=== PATIENT | female | born 1985 | race African-American/Black ===

== ENCOUNTER 2022-10-03 12:09 | Inpatient (IN) | payer SELFPAY ==
[~2022-10-03] VITALS: Ht 162.6 cm; Wt 64.0 kg
[2022-10-03] MEDS ORDERED: HALOPERIDOL LACTATE 5 MG/ML VIAL ONE (12:41)
[2022-10-03] MEDS ORDERED: LORazepam 2 MG/ML VIAL ONE (12:41)
[2022-10-03] MEDS ORDERED: DiphenhydrAMINE HCL 50 MG/ML VIAL ONE (12:41)
[2022-10-03] MEDS ORDERED: DiphenhydrAMINE HCL 50 MG/ML VIAL IM ONE (12:45)
[2022-10-03] MEDS ORDERED: LORazepam 2 MG/ML VIAL IM ONE (12:45)
[2022-10-03] MEDS ORDERED: HALOPERIDOL LACTATE 5 MG/ML VIAL IM ONE (12:45)
[2022-10-03 13:32] LABS: BASOPHILS % (AUTO) 0.5 % (0.0-2.0); EOSINOPHILS % (AUTO) 0.1 % (1.0-6.0); HEMATOCRIT 41.5 % (36-46); HEMOGLOBIN 13.8 g/dL (12.0-16.0); LYMPHOCYTES # (AUTO) 1.6 K/uL (1.0-4.8); LYMPHOCYTES % (AUTO) 15.5 % (22.0-44.0); MEAN CORPUSCULAR HGB CONC 33.3 G/dL (31.0-37.0); MEAN CORPUSCULAR VOLUME 87 fL (80-100); MONOCYTES % (AUTO) 9.5 % (2.0-9.0); NEUTROPHILS # (AUTO) 7.6 K/uL (1.8-7.7); NEUTROPHILS % (AUTO) 74.4 % (40.0-70.0); PLATELET COUNT (AUTO) 179 K/uL (150-450); RED BLOOD CELL COUNT(AUTO) 4.76 MIL/uL (4.00-5.20); RED CELL DISTRIBUTION WIDTH 13.1 % (11.5-14.5)
[2022-10-03 13:38] LABS: ANION GAP 15 mmol/L (8-16); CALCIUM, TOTAL 9.2 mg/dL (8.8-10.5); CARBON DIOXIDE 23 mmol/L (22-29); CHLORIDE 101 mmol/L (98-107); CREATININE 1.04 mg/dL (0.60-1.30); GLOMERULAR FILTR. RATE CALC > 60 mL/min (>60); GLUCOSE,RANDOM 58 mg/dL (70-110); POTASSIUM 3.1 mmol/L (3.5-5.1); SODIUM SERUM 139 mmol/L (136-145); UREA NITROGEN, BLOOD 23 mg/dL (7-18)
[2022-10-03 13:44] LABS: ALANINE AMINOTRANSFERASE 43 U/L (12-78); ALBUMIN 4.6 g/dL (3.4-5.0); ALKALINE PHOSPHATASE 75 U/L (46-116); BILIRUBIN,TOTAL 2.6 mg/dL (0.1-1.0); TOTAL PROTEIN, SERUM 7.7 g/dL (6.4-8.2)
[2022-10-03 13:53] LABS: ASPARTATE AMINOTRANSFERASE 90 U/L (15-37)
[2022-10-03 14:42] LABS: COVID AG,FIA SOURCE NASAL SWAB
[2022-10-03] MEDS ORDERED: LORazepam 2 MG TABLET PO PRN (15:30)
[2022-10-03] MEDS ORDERED: HALOPERIDOL 5 MG TABLET PO PRN (15:30)
[2022-10-03] MEDS ORDERED: ZOLPIDEM TARTRATE 10 MG TABLET PO PRN (15:30)
[2022-10-03 18:11] VITALS: BP 100/60
[2022-10-03] MEDS ORDERED: POTASSIUM CHLORIDE 20 MEQ ER TABLET PO ONE ×2 (18:30→20:15)
[2022-10-03 21:12] VITALS: BP 111/71
[2022-10-04] MEDS ORDERED: ONDANSETRON HCL 4 MG TABLET PO PRN (07:00)
[2022-10-04] MEDS ORDERED: ALBUTEROL SULFATE HFA 90 MCG/PUFF 8 GM INHALER IH PRN (07:00)
[2022-10-04] MEDS ORDERED: PETROLATUM,WHITE 28 GM JELLY TP PRN (07:00)
[2022-10-04] MEDS ORDERED: LOPERAMIDE HCL 2 MG CAPSULE PO PRN (07:00)
[2022-10-04] MEDS ORDERED: IBUPROFEN 400 MG TABLET PO PRN (07:00)
[2022-10-04] MEDS ORDERED: CloNIDine HCL 0.1 MG TABLET PO PRN (07:00)
[2022-10-04] MEDS ORDERED: GuaiFENesin/D-METHORPHAN [SUGAR-FREE] 200-20MG/10 ML SYRUP UDCUP PO PRN (07:00)
[2022-10-04] MEDS ORDERED: ACETAMINOPHEN 325 MG TABLET PO PRN (07:00)
[2022-10-04] MEDS ORDERED: NICOTINE 14 MG/24 HOUR PATCH TD PRN (07:00)
[2022-10-04] MEDS ORDERED: MAGNESIUM HYDROXIDE SUSPENSION 30 ML UDCUP PO PRN (07:00)
[2022-10-04] MEDS ORDERED: MAG HYDROX/AL HYDROX/SIMETH ES 30 ML SUSPENSION UDCUP PO PRN (07:00)
[2022-10-04] MEDS ORDERED: DOCUSATE SODIUM 100 MG CAPSULE PO PRN (07:00)
[2022-10-04] MEDS: OLANZapine 10 MG RAPDIS TABLET PO SCH (09:00)
[2022-10-04 09:03] VITALS: BP 117/69
[2022-10-04] MEDS: RisperiDONE 1 MG TABLET PO SCH (17:00)
[2022-10-05] MEDS: RisperiDONE 1 MG TABLET PO SCH ×2 (09:00→16:41)
[2022-10-05] MEDS: OLANZapine 10 MG RAPDIS TABLET PO SCH (09:00)
[2022-10-06 08:42] VITALS: BP 106/72
[2022-10-06] MEDS: OLANZapine 10 MG RAPDIS TABLET PO SCH (09:00)
[2022-10-06] MEDS: RisperiDONE 1 MG TABLET PO SCH (09:00)
== END 2022-10-06 12:00 | disposition home or self-care (01) | DRG 885 ==
LOC: EMS 12:18 → 3EC 15:55
PROVIDERS: ADMIT Psychiatry & Neurology Child & Adolescent Psychiatry; ATTEND Psychiatry & Neurology Child & Adolescent Psychiatry
DX: F31.9 Bipolar disorder, unspecified (principal); F43.10 Post-traumatic stress disorder, unspecified; Z20.822 Contact with and (suspected) exposure to COVID-19; Z59.00 Homelessness unspecified
CPT/HCPCS: 80053; 84132; 84703; 85025; 99291; G0480; J1200; J1630; J2060